=== PATIENT | female | born 1950 | race Caucasian/White ===

== ENCOUNTER 2017-01-22 10:29 | Emergency (ER) | payer OTHER ==
[2017-01-22 11:43] VITALS: BP 144/88
--- NOTE | 2017-01-22 11:57 | UC ---
Complaint Female HPI - HPI Summary HPI Summary: Urinary frequency, urgency, burning, cramping since this morning. Gets UTIs 1-2 times per year, this feels just like that. Denies vaginal symptoms or concerns for STIs. No fever, vomiting, or back pain. - History Of Current Complaint Hx Obtained From: Patient ?: No Onset/Duration: Gradual Onset, Lasting Hours Timing: Constant Severity Initially: Mild Severity Currently: Moderate Character: Burning, Cramping Aggravating Factor(s): Urination <Talita Rankin - Last Filed: 01/22/17 11:55> <Juanita Muñiz - Last Filed: 01/22/17 13:11> - History Of Current Complaint Chief Complaint: UCGU Stated Complaint: UTI COMPLAINT Time Seen by Provider: 01/22/17 11:46 - Allergies/Home Medications Allergies/Adverse Reactions: Allergies Allergy/AdvReac Type Severity Reaction Status Date / Time Ciprofloxacin [From Cipro] Allergy Severe Diarrhea Verified 08/26/16 14:45 Eggs or Egg-derived Products Allergy Intermediate See Comment Verified 08/26/16 14:45 Home Medications: Home Medications Multiple Vitamins W/ Minerals [Hair/Skin/Nails] 01/22/17 [History] PMH/Surg Hx/FS Hx/Imm Hx Endocrine History Of: Denies: Diabetes, Thyroid Disease Cardiovascular History Of: Reports: Hypertension Denies: Cardiac Disorders, Pacemaker/ICD Respiratory History Of: Denies: COPD, Asthma GI/ History Of: Denies: Ulcer - Surgical History Surgical History: Yes Surgery Procedure, Year, and Place: Bilateral hip replacement 10/15/08 and 12/22. both knees arthroscopic. tubal ligation 04/2000. wisdom teeth. small cyst removed from rt wrist early - Family History Known Family History: Negative: Hypertension, Diabetes - Social History Alcohol Use: None Substance Use Type: None Smoking Status (MU): Never Smoked Tobacco Have You Smoked in the Last Year: No <Talita Rankin - Last Filed: 01/22/17 11:55> Review of Systems Constitutional: Negative Skin: Negative Eyes: Negative ENT: Negative Respiratory: Negative Cardiovascular: Negative Gastrointestinal: Negative Genitourinary: Dysuria, Frequency, Urgency Motor: Negative Neurovascular: Negative Musculoskeletal: Negative Neurological: Negative Psychological: Negative All Other Systems Reviewed And Are Negative: Yes <Talita Rankin - Last Filed: 01/22/17 11:55> Physical Exam Triage Information Reviewed: Yes Appearance: Well-Appearing, No Pain Distress, Well-Nourished Vital Signs: Initial Vital Signs Temp 97.9 F 01/22/17 11:39 Pulse 69 01/22/17 11:39 Resp 16 01/22/17 11:39 BP 144/88 01/22/17 11:39 Pulse Ox 100 01/22/17 11:39 Vital Signs Reviewed: Yes Eye Exam: Normal Eyes: Positive: Conjunctiva Clear ENT Exam: Normal ENT: Positive: Normal ENT inspection, Hearing grossly normal, Pharynx normal, TMs normal Dental Exam: Normal Neck exam: Normal Neck: Positive: Supple, Nontender, No Lymphadenopathy Respiratory Exam: Normal Respiratory: Positive: Chest non-tender, Lungs clear, Normal breath sounds, No respiratory distress, No accessory muscle use Cardiovascular Exam: Normal Cardiovascular: Positive: RRR, No Murmur Abdomen Description: Negative: CVA Tenderness (R), CVA Tenderness (L) Musculoskeletal Exam: Normal Neurological Exam: Normal Neurological: Positive: Alert Psychological Exam: Normal Skin Exam: Normal <Talita Rankin - Last Filed: 01/22/17 11:55> Vital Signs: Initial Vital Signs Temp 97.9 F 01/22/17 11:39 Pulse 69 01/22/17 11:39 Resp 16 01/22/17 11:39 BP 144/88 01/22/17 11:39 Pulse Ox 100 01/22/17 11:39 <Juanita Muñiz - Last Filed: 01/22/17 13:11> Complaint Female Dx - Differential Dx/Diagnosis Provider Diagnoses: UTI <Talita Rankin - Last Filed: 01/22/17 11:55> Discharge <Talita Rankin - Last Filed: 01/22/17 11:55> <Juanita Muñiz - Last Filed: 01/22/17 13:11> - Discharge Plan Condition: Stable Disposition: HOME Prescriptions: Cephalexin CAP* [Keflex CAP*] 500 mg PO TID #15 cap Patient Education Materials: Urinary Tract Infection in Women (ED) Referrals: Ria Guzman NP [Primary Care Provider] - Attestation Statement User Type: Provider - I was available for consult. This patient was seen by the TRACI. The patient was not presented to, seen by, or examined by me. <Juanita Muñiz - Last Filed: 01/22/17 13:11>
== END 2017-01-22 12:10 | disposition home or self-care (01) ==
LOC: UCEAST 10:29
DX: N39.0 Urinary tract infection, site not specified (principal)
CPT/HCPCS: 81003; 87086; 99212; G0463

== ENCOUNTER 2017-04-02 15:01 | Emergency (ER) | payer SELFPAY ==
[2017-04-02] MEDS ORDERED: Ibuprofen TAB* 600 MG PO ONE (16:31)
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
--- NOTE | 2017-04-02 18:49 | RAD ---
Indication: Neck pain. 3 views of the cervical spine read in conjunction with the previous identified lateral view demonstrates disc space narrowing at C5-C6 and C6-C7 with mild grade 1 spondylolisthesis of C4 on 5. No fracture is identified. IMPRESSION: Mild grade 1 spondylolisthesis of C4 on 5 likely due to degenerative facet arthropathy. Degenerative disc disease at C5-C6 and C6-C7.
[2017-04-02 19:08] VITALS: BP 124/74
== END 2017-04-02 19:15 | disposition home or self-care (01) ==
LOC: ED 15:01
DX: S16.1XXA Strain of muscle, fascia and tendon at neck level, initial encounter (principal); R51 Headache; V49.9XXA Car occupant (driver) (passenger) injured in unspecified traffic accident, initial encounter; Y93.9 Activity, unspecified; Y92.9 Unspecified place or not applicable
CPT/HCPCS: 72020; 72040; 99282

== ENCOUNTER 2017-12-23 22:10 | Emergency (ER) | payer OTHER ==
[2017-12-23] MEDS ORDERED: Acetaminophen TAB* 325 MG PO ONE (23:58)
[2017-12-24] MEDS ORDERED: Acetaminophen TAB* 325 MG ONE
[2017-12-24 00:04] LABS: ABS Basophils 0.1 10^3/ul (0-0.2); ABS Eosinophils 0.2 10^3/ul (0-0.6); ABS Lymphocytes 1.9 10^3/ul (1.0-4.8); ABS Monocytes 0.6 10^3/ul (0-0.8); ABS Neutrophils 5.8 10^3/ul (1.5-7.7); ABS Nucleated RBC 0 10^3/ul; Eosinophil % 1.8 % (0-6); Hematocrit 39 % (35-47); Hemoglobin 13.3 g/dl (12.0-16.0); Lymphocyte % 22.8 % (25-47); Mean Corpuscular HGB Conc 34 g/dl (31-36); Mean Corpuscular Hemoglobin 30 pg (27-31); Mean Corpuscular Volume 88 fL (80-97); Mean Platelet Volume 8.2 um3 (7.4-10.4); Nucleated Red Blood Cells % 0; Platelet Count 276 10^3/ul (150-450); Red Blood Count 4.46 10^6/ul (4.0-5.4); Red Cell Distribution Width 14 % (10.5-15); White Blood Count 8.5 10^3/ul (3.5-10.8)
[2017-12-24 00:23] LABS: Urine Appearance Clear; Urine Blood Negative (Negative); Urine Color Yellow; Urine Ketones Negative (Negative); Urine Protein Negative (Negative); Urine Specific Gravity 1.005 (1.010-1.030); Urine Urobilinogen Negative (Negative)
[2017-12-24 00:24] LABS: EGFR Non-African American 54.8 (>60)
[2017-12-24] MEDS ORDERED: Iodixanol* (CONTRAST) 320 MG/ML 100 ML SDV IV ONE (00:30)
[2017-12-24] MEDS ORDERED: Cephalexin CAP* 500 MG PO ONE (05:41)
[2017-12-24 06:41] VITALS: BP 100/56
--- NOTE | 2017-12-24 08:06 | RAD ---
INDICATION: Chest pain COMPARISON: Chest x-ray September 17, 2014 TECHNIQUE: An AP portable view obtained at 0011 hours is submitted. FINDINGS: Bones/Soft Tissues: There are no acute bony findings. Cardiomediastinal: The cardiomediastinal silhouette is normal. Lungs: There are no infiltrates. Pleura: There are no pleural effusions. Other: None IMPRESSION: NO ACTIVE DISEASE.
--- NOTE | 2017-12-24 08:16 | RAD ---
INDICATION: Anxiety. Chest pain tonight. Possible abdominal pathology. COMPARISON: Chest x-ray same date; CTA chest August 12, 2010 TECHNIQUE: Axial source images were obtained from the thoracic inlet to the symphysis pubis following administration of 100 mL Visipaque [address] angiographic technique coronal and sagittal reconstructed images were acquired. CHEST FINDINGS: Neck/thyroid: The visualized neck to include the thyroid appear normal. Chest wall: There are no acute abnormalities of the bony thorax or chest wall. There is no supraclavicular, infraclavicular, or axillary lymphadenopathy. Lungs : There are no pulmonary parenchymal masses or infiltrates. The pulmonary interstitium appears normal. There are no endobronchial lesions. Cardiomediastinal structures: The heart is normal in size. There is no pericardial effusion. There is no evidence of aortic aneurysm or dissection. There is no CT evidence of acute pulmonary embolic disease. There is no mediastinal or hilar adenopathy. The esophagus appears normal. Pleura : There are no pleural-based masses or effusions. ABDOMINAL/PELVIC FINDINGS: Liver: The liver is normal in size. There are no masses identified on early arterial phase enhancement. There is no ductal dilatation. Gallbladder: There are no calcified gallstones. There is no evidence of wall thickening or pericholecystic fluid. Spleen: The spleen is normal in size. There are no masses identified on the early arterial phase enhanced images. Pancreas: There is no evidence of pancreatic mass or ductal dilatation. Adrenal glands: There is no evidence of adrenal mass. Kidneys: The kidneys are normal in size and position. There are prompt nephrograms bilaterally. There are no renal parenchymal masses. There is no evidence of nephrolithiasis. Adenopathy: There is no evidence of adenopathy by size criteria. Fluid collections: There are no free or localized fluid collections. Vessels:The aorta and IVC appear normal GI tract: There are no acute CT bowel findings. There is no obstruction. The stomach and small bowel appear normal. The lower GI tract is normal. The cecum, ileocecal valve, and terminal ileum appear normal. The appendix is visualized and appear normal. Pelvic organs: Limited evaluation due to beam hardening artifact from right hip arthroplasty. Bladder: Limited evaluation due to beam hardening artifact from bilateral hip arthroplasty. Abdominal and pelvic soft tissues: There is a low-density mass, likely a fluid collection, in the right inguinal region extending into the iliac fossa. This may be related to iliopsoas bursitis. There is a small periumbilical hernia Osseous structures: There are osteoarthritic changes of the lumbar spine.. IMPRESSION: 1. No CT evidence of acute pulmonary embolic disease. 2. No CT evidence of aortic aneurysm or dissection. 3. Suspect right-sided iliopsoas bursitis. Recommend correlation with clinical history and consider follow-up ultrasonography
--- NOTE | 2017-12-26 15:55 | ED ---
Clint Ovalle Angela, scribed for Jean-Paul Escobedo MD on 12/23/17 at 2351 . HPI Chest Pain - HPI Summary HPI Summary: This pt is a 67 y/o female with hx of anxiety presenting to [facility] [place] [place] c/o intermittent chest pain since 16:00 today. She states she has had a lot of stress lately and today her horse . Pt reports her pain began when she went to see her horse at approximately 16:00. She notes her pain is located in diffuse areas of her middle chest. Denies pleuritic chest pain. Pt notes she describes pain as "someone taking her breath away." She additionally states upper back pain and intermittent headache. Her back pain is aggravated with sitting down. Pt reports bilateral feet and arm tingling, which she notes she has had in the past from arthritis. Pt reports she has had chest pain episodes 3 times in the past couple of weeks after "dental work" and novocaine. Pt notes that a couple of weeks ago one episode of chest pain was accompanied by lightheadedness and a panic attack. PMHx: functional heart murmur, borderline HTN (for which she takes lisinopril). Denies any other cardiac history. - History of Current Complaint Chief Complaint: EDChestPainROMI Hx Obtained From: Patient Onset/Duration: Started Hours Ago, Still Present Timing: Intermittent, Lasting Hours Current Severity: Moderate Pain Intensity: 6 Pain Scale Used: 0-10 Numeric Chest Pain Location: Diffuse Chest Pain Radiates: No Character: Other: - "someone taking her breath away" Aggravating Factor(s): Nothing Alleviating Factor(s): Nothing Associated Signs and Symptoms: Positive: Chest Pain, Headaches - intermittent, Back Pain. Negative: Abdominal Pain - Allergy/Home Medications Allergies/Adverse Reactions: Allergies Allergy/AdvReac Type Severity Reaction Status Date / Time ciprofloxacin [From Cipro] Allergy Diarrhea Verified 12/23/17 22:46 egg Allergy Abdominal Verified 12/23/17 22:47 Pain PMH/Surg Hx/FS Hx/Imm Hx Endocrine/Hematology History: Denies: Hx Diabetes, Hx Thyroid Disease Cardiovascular History: Reports: Hx Hypertension Denies: Hx Pacemaker/ICD Respiratory History: Denies: Hx Asthma, Hx Chronic Obstructive Pulmonary Disease (COPD) GI History: Denies: Hx Ulcer Sensory History: Denies: Hx Hearing Aid Psychiatric History: Denies: Hx Panic Disorder - Surgical History Surgery Procedure, Year, and Place: Bilateral hip replacement 10/15/08 and 12/22. both knees arthroscopic. tubal ligation 04/2000. wisdom teeth. small cyst removed from rt wrist early Infectious Disease History: No Infectious Disease History: Denies: Hx Hepatitis, Hx Human Immunodeficiency Virus (HIV), History Other Infectious Disease, Traveled Outside the [place] in Last 30 Days - Family History Known Family History: Negative: Hypertension, Diabetes - Social History Alcohol Use: None Hx Substance Use: No Substance Use Type: Reports: None Hx Tobacco Use: No Smoking Status (MU): Never Smoked Tobacco Have You Smoked in the Last Year: No Review of Systems Negative: Fever Eyes: Negative ENT: Negative Positive: Chest Pain Respiratory: Negative Gastrointestinal: Negative Musculoskeletal: Other - back pain Positive: Headache - intermittent All Other Systems Reviewed And Are Negative: Yes Physical Exam - Summary Physical Exam Summary: General: No acute distress Appearance: Well-appearing, Well-nourished Skin: Warm Eyes: Normal ENT: Normal Neck: Supple, nontender Respiratory: Clear to auscultation Cardiovascular: Normal S1, S2. No murmurs. Normal distal pulses in tibial and radial bilaterally. Abdomen: Soft, nontender Musculoskeletal: Normal, Strength/ROM Intact Neurological: Normal, A&Ox3 Psychiatric: Normal Triage Information Reviewed: Yes Vital Signs On Initial Exam: Initial Vitals Temp Pulse Resp BP Pulse Ox 97.1 F 77 20 152/86 100 12/23/17 22:12 12/23/17 22:12 12/23/17 22:12 12/23/17 22:12 12/23/17 22:12 Vital Signs Reviewed: Yes Diagnostics - Vital Signs Vital Signs Temp Pulse Resp BP Pulse Ox 12/23/17 23:00 65 13 111/59 96 12/23/17 22:41 68 16 123/58 99 12/23/17 22:32 70 9 100 12/23/17 22:30 123/58 12/23/17 22:12 97.1 F 77 20 152/86 100 - Laboratory Lab Results: Lab Results 12/23/17 12/23/17 12/23/17 Range/Units 22:40 22:40 22:40 WBC 8.5 (3.5-10.8) 10^3/ul RBC 4.46 (4.0-5.4) 10^6/ul Hgb 13.3 (12.0-16.0) g/dl Hct 39 (35-47) % MCV 88 (80-97) fL MCH 30 (27-31) pg MCHC 34 (31-36) g/dl RDW 14 (10.5-15) % Plt Count 276 (150-450) 10^3/ul MPV 8.2 (7.4-10.4) um3 Neut % (Auto) 67.9 (38-83) % Lymph % (Auto) 22.8 L (25-47) % Crisp % (Auto) 6.9 (0-7) % Eos % (Auto) 1.8 (0-6) % Baso % (Auto) 0.6 (0-2) % Absolute Neuts (auto) 5.8 (1.5-7.7) 10^3/ul Absolute Lymphs (auto) 1.9 (1.0-4.8) 10^3/ul Absolute Monos (auto) 0.6 (0-0.8) 10^3/ul Absolute Eos (auto) 0.2 (0-0.6) 10^3/ul Absolute Basos (auto) 0.1 (0-0.2) 10^3/ul Absolute Nucleated RBC 0 10^3/ul Nucleated RBC % 0 APTT 28.9 (26.0-36.3) seconds Sodium 135 (133-145) mmol/L Potassium 4.3 (3.5-5.0) mmol/L Chloride 99 L (101-111) mmol/L Carbon Dioxide 28 (22-32) mmol/L Anion Gap 8 (2-11) mmol/L BUN 22 (6-24) mg/dL Creatinine 1.01 H (0.51-0.95) mg/dL Est GFR ( Amer) 70.5 (>60) Est GFR (Non-Af Amer) 54.8 (>60) BUN/Creatinine Ratio 21.8 H (8-20) Glucose 101 H (70-100) mg/dL Lactic Acid (0.5-2.0) mmol/L Calcium 10.5 H (8.6-10.3) mg/dL Magnesium 2.0 (1.9-2.7) mg/dL Total Bilirubin 0.40 (0.2-1.0) mg/dL AST 27 (13-39) U/L ALT 19 (7-52) U/L Alkaline Phosphatase 68 (34-104) U/L Troponin I 0.00 (<0.04) ng/mL Total Protein 6.8 (6.4-8.9) g/dL Albumin 4.1 (3.2-5.2) g/dL Globulin 2.7 (2-4) g/dL Albumin/Globulin Ratio 1.5 (1-3) TSH 4.24 (0.34-5.60) mcIU/mL Urine Color Urine Appearance Urine pH (5-9) Ur Specific [place] (1.010-1.030) Urine Protein (Negative) Urine Ketones (Negative) Urine Blood (Negative) Urine Nitrate (Negative) Urine Bilirubin (Negative) Urine Urobilinogen (Negative) Ur Leukocyte Esterase (Negative) Urine WBC (Auto) (Absent) Urine RBC (Auto) (Absent) Ur Squamous Epith Cells (Absent) Urine Bacteria (Absent) Urine Glucose (Negative) 12/23/17 12/23/17 12/24/17 Range/Units 22:40 23:00 04:00 WBC (3.5-10.8) 10^3/ul RBC (4.0-5.4) 10^6/ul Hgb (12.0-16.0) g/dl Hct (35-47) % MCV (80-97) fL MCH (27-31) pg MCHC (31-36) g/dl RDW (10.5-15) % Plt Count (150-450) 10^3/ul MPV (7.4-10.4) um3 Neut % (Auto) (38-83) % Lymph % (Auto) (25-47) % Crisp % (Auto) (0-7) % Eos % (Auto) (0-6) % Baso % (Auto) (0-2) % Absolute Neuts (auto) (1.5-7.7) 10^3/ul Absolute Lymphs (auto) (1.0-4.8) 10^3/ul Absolute Monos (auto) (0-0.8) 10^3/ul Absolute Eos (auto) (0-0.6) 10^3/ul Absolute Basos (auto) (0-0.2) 10^3/ul Absolute Nucleated RBC 10^3/ul Nucleated RBC % APTT (26.0-36.3) seconds Sodium (133-145) mmol/L Potassium (3.5-5.0) mmol/L Chloride (101-111) mmol/L Carbon Dioxide (22-32) mmol/L Anion Gap (2-11) mmol/L BUN (6-24) mg/dL Creatinine (0.51-0.95) mg/dL Est GFR ( Amer) (>60) Est GFR (Non-Af Amer) (>60) BUN/Creatinine Ratio (8-20) Glucose (70-100) mg/dL Lactic Acid 1.5 (0.5-2.0) mmol/L Calcium (8.6-10.3) mg/dL Magnesium (1.9-2.7) mg/dL Total Bilirubin (0.2-1.0) mg/dL AST (13-39) U/L ALT (7-52) U/L Alkaline Phosphatase (34-104) U/L Troponin I 0.00 (<0.04) ng/mL Total Protein (6.4-8.9) g/dL Albumin (3.2-5.2) g/dL Globulin (2-4) g/dL Albumin/Globulin Ratio (1-3) TSH (0.34-5.60) mcIU/mL Urine Color Yellow Urine Appearance Clear Urine pH 8.0 (5-9) Ur Specific [place] 1.005 L (1.010-1.030) Urine Protein Negative (Negative) Urine Ketones Negative (Negative) Urine Blood Negative (Negative) Urine Nitrate Negative (Negative) Urine Bilirubin Negative (Negative) Urine Urobilinogen Negative (Negative) Ur Leukocyte Esterase 1+ A (Negative) Urine WBC (Auto) 1+(6-10/hpf) A (Absent) Urine RBC (Auto) Trace(0-2/hpf) (Absent) Ur Squamous Epith Cells Present A (Absent) Urine Bacteria Absent (Absent) Urine Glucose Negative (Negative) Result Diagrams: 12/23/17 22:40 12/23/17 22:40 Lab Statement: Any lab studies that have been ordered have been reviewed, and results considered in the medical decision making process. - Radiology Chest XR Xray Interpretation: No Acute Changes - no acute intrathoracic disease. Radiology Interpretation Completed By: ED Physician - CT CTA chest/abdomen/pelvis CT Interpretation: No Acute Changes - IMPRESSION: No aortic dissection. Moderate degenerative chagnes of the lumbar spine without fracture. Suspected right sided iliopsoas bursitis. Dr. Escobedo has reviewed this radiology report. CT Interpretation Completed By: Radiologist - EKG 22:14 Cardiac Rate: NL EKG Rhythm: Sinus Rhythm - at 73 bpm EKG Interpretation: No acute ST changes. Re-Evaluation - Re-Evaluation First Eval Re-Evaluation Time: 06:21 Comment: Pt reports feeling better. Chest Pain Course/Dx - Course Course Of Treatment: chest pain resolved after ED course, ct negative for any aortic pathology. Neuro intact, normal distal pulses, pt instructed to fu with quality assurance calibrator and pmd and to continue abx for uti. agrees to and understands dc instructions. - Diagnoses Provider Diagnoses: Chest pain Discharge - Sign-Out/Discharge Documenting (check all that apply): Discharge - discharge to home - Discharge Plan Condition: Improved Disposition: HOME Prescriptions: Cephalexin CAP* [Keflex CAP*] 500 mg PO BID #10 cap Patient Education Materials: Chest Pain (ED), Urinary Tract Infection in Women (ED) Referrals: Crow Carpenter MD [Primary Care Provider] - Kevin Kendall MD [Medical Doctor] - Nia Eason MD [Medical Doctor] - Additional Instructions: PLEASE TAKE MEDICATIONS DIRECTED PLEASE MAKE AN APPOINTMENT FIRST THING IN THE MORNING TO BE SEEN BY A WARD NURSE WITHIN 1-2 WEEKS PLEASE RETURN IMMEDIATELY TO THE ER IF YOU HAVE ANY WORSENING OR CONCERNING SYMPTOMS PLEASE MAKE AN APPOINTMENT TO BE SEEN BY YOUR PRIMARY CARE DOCTOR WITHIN 1 WEEK - Billing Disposition and Condition Condition: IMPROVED Disposition: HOME The documentation as recorded by the Clint bonner Angela accurately reflects the service I personally performed and the decisions made by , Jean-Palu Escobedo MD.
== END 2017-12-24 06:40 | disposition home or self-care (01) ==
LOC: ED 22:10
DX: R07.9 Chest pain, unspecified (principal); R51 Headache; M54.9 Dorsalgia, unspecified
CPT/HCPCS: 36415; 71045; 71275; 74174; 80053; 81003; 81015; 83605; 83735; 84443; 84484; 85025; 85730; 87086; 93005; 96374; 99283; A9270-GY; Q9967

== ENCOUNTER 2018-12-07 10:07 | Emergency (ER) | payer MEDICARE, OTHER ==
--- NOTE | 2018-12-07 10:14 | UC ---
Complaint Female HPI - HPI Summary HPI Summary: 68 yo female presents with urinary burning, pressure, and frequency since this morning. She tells me that she has a long history of UTIs and this feels the same. She denies fever, chills, abdominal pain, n/v, flank pain, hematuria. - History Of Current Complaint Stated Complaint: UTI Time Seen by Provider: 12/07/18 10:14 Hx Obtained From: Patient Onset/Duration: Sudden Onset Severity Initially: Moderate Severity Currently: Moderate Pain Intensity: 5 Pain Scale Used: 0-10 Numeric - Allergies/Home Medications Allergies/Adverse Reactions: Allergies Allergy/AdvReac Type Severity Reaction Status Date / Time egg Allergy Abdominal Verified 12/07/18 10:22 Pain ciprofloxacin [From Cipro] AdvReac Diarrhea Verified 12/07/18 10:22 PMH/Surg Hx/FS Hx/Imm Hx Cardiovascular History: Hypertension - Surgical History Surgical History: Yes Surgery Procedure, Year, and Place: Bilateral hip replacement 10/15/08 and 12/22. both knees arthroscopic. tubal ligation 04/2000. wisdom teeth. small cyst removed from rt wrist early - Family History Known Family History: Negative: Hypertension, Diabetes - Social History Lives: With Family Alcohol Use: None Substance Use Type: None Smoking Status (MU): Never Smoked Tobacco Have You Smoked in the Last Year: No Review of Systems All Other Systems Reviewed And Are Negative: Yes Constitutional: Positive: Negative Skin: Positive: Negative Respiratory: Positive: Negative Cardiovascular: Positive: Negative Gastrointestinal: Positive: Negative Genitourinary: Positive: Dysuria, Urgency Neurovascular: Positive: Negative Neurological: Positive: Negative Psychological: Positive: Negative Physical Exam - Summary Physical Exam Summary: GENERAL: NAD. WDWN. No pain distress. SKIN: No rashes, sores, lesions, or open wounds. NECK: Supple. Nontender. No lymphadenopathy. CHEST: CTAB. No r/r/w. No accessory muscle use. Breathing comfortably and in no distress. CV: RRR. Without m/r/g. Pulses intact. Cap refill <2seconds ABDOMEN: Soft. NTTP. No distention or guarding. No organomegaly. No CVA tenderness. Bowel sounds present NEURO: Alert. PSYCH: Age appropriate behavior. Triage Information Reviewed: Yes Vital Signs: Laboratory Tests 12/07/18 10:22 POC Urine Color Yellow POC Urine Clarity Clear POC Urine pH 5.5 POC Ur Specif [place] >= 1.030 POC Urine Protein 1+ A POC Ur Glucose (UA) Negative POC Urine Ketones Trace A POC Urine Blood 2+ A POC Urine Nitrite Negative POC Urine Bilirubin Negative POC Urine Urobilinogen 0.2 POC U Leukocyte Esteras 3+ A Vital Signs: Temp Pulse Resp BP Pulse Ox 97 F 77 16 137/78 100 12/07/18 10:25 12/07/18 10:25 12/07/18 10:25 12/07/18 10:25 12/07/18 10:25 Vital Signs Reviewed: Yes Complaint Female Dx - Course Course Of Treatment: UTI - Differential Dx/Diagnosis Provider Diagnosis: UTI (urinary tract infection) Discharge - Sign-Out/Discharge Documenting (check all that apply): Patient Departure All imaging exams completed and their final reports reviewed: No Studies - Discharge Plan Condition: Stable Disposition: HOME Prescriptions: Cephalexin CAP* [Keflex CAP*] 500 mg PO BID #10 cap Fluconazole 150 MG TAB* [Diflucan 150 MG TAB*] 150 mg PO DAILY #3 tablet Phenazopyridine 200 mg (NF) [Pyridium 200 MG tab *] 200 mg PO TID #6 tab Patient Education Materials: Urinary Tract Infection in Women (ED) Referrals: Crow Carpenter MD [Primary Care Provider] - Additional Instructions: If you develop a fever, shortness of breath, chest pain, new or worsening symptoms - please call your PCP or go to the ED. Your blood pressure was mildly elevated at todays visit. Please see your primary provider within 4 weeks for recheck and re-evaluation. - Billing Disposition and Condition Condition: STABLE Disposition: Home
[2018-12-07 10:32] VITALS: BP 137/78
[2018-12-07] MEDS ORDERED: Cephalexin CAP* 500 MG PO ONE (10:43)
[2018-12-07] MEDS ORDERED: Phenazopyridine TAB* 100 MG PO ONE (10:44)
== END 2018-12-07 10:55 | disposition home or self-care (01) ==
LOC: UCEAST 10:07
DX: N39.0 Urinary tract infection, site not specified (principal); Z87.440 Personal history of urinary (tract) infections; I10 Essential (primary) hypertension; Z88.1 Allergy status to other antibiotic agents; Z91.012 Allergy to eggs; Z96.643 Presence of artificial hip joint, bilateral
CPT/HCPCS: 81003; 87086; 99212; A9270-GY; G0463

== ENCOUNTER 2019-04-14 19:29 | Emergency (ER) | payer OTHER ==
--- NOTE | 2019-04-14 19:40 | UC ---
Complaint Female HPI - HPI Summary HPI Summary: 68 yo female presents with UTI symptoms. She tells me that for the last 2 days she has been having urinary frequency and bladder pressure. She has had UTIs many times in the past and this feels the same. She denies fever, chills, abdominal pain, n/v, flank pain, hematuria. - History Of Current Complaint Stated Complaint: PERSONAL Time Seen by Provider: 04/14/19 19:40 Hx Obtained From: Patient Onset/Duration: Gradual Onset Severity Initially: Mild Severity Currently: Mild Pain Intensity: 2 Pain Scale Used: 0-10 Numeric - Allergies/Home Medications Allergies/Adverse Reactions: Allergies Allergy/AdvReac Type Severity Reaction Status Date / Time egg Allergy Abdominal Verified 04/14/19 19:53 Pain ciprofloxacin [From Cipro] AdvReac Diarrhea Verified 04/14/19 19:53 PMH/Surg Hx/FS Hx/Imm Hx Cardiovascular History: Hypertension - Surgical History Surgical History: Yes Surgery Procedure, Year, and Place: Bilateral hip replacement 10/15/08 and 12/22. Bilateral knee replacements 07/2018. tubal ligation 04/2000. wisdom teeth. small cyst removed from rt wrist early - Family History Known Family History: Negative: Hypertension, Diabetes - Social History Lives: With Family Alcohol Use: None Substance Use Type: None Smoking Status (MU): Never Smoked Tobacco Have You Smoked in the Last Year: No Review of Systems All Other Systems Reviewed And Are Negative: Yes Constitutional: Positive: Negative Skin: Positive: Negative Respiratory: Positive: Negative Cardiovascular: Positive: Negative Gastrointestinal: Positive: Negative Genitourinary: Positive: Dysuria, Frequency Neurovascular: Positive: Negative Neurological: Positive: Negative Psychological: Positive: Negative Physical Exam - Summary Physical Exam Summary: GENERAL: NAD. WDWN. No pain distress. SKIN: No rashes, sores, lesions, or open wounds. NECK: Supple. Nontender. No lymphadenopathy. CHEST: CTAB. No r/r/w. No accessory muscle use. Breathing comfortably and in no distress. CV: RRR. Without m/r/g. Pulses intact. Cap refill <2seconds ABDOMEN: Soft. NTTP. No distention or guarding. No CVA tenderness. Bowel sounds present NEURO: Alert. PSYCH: Age appropriate behavior. Triage Information Reviewed: Yes Vital Signs: Vital Signs: Temp Pulse Resp BP Pulse Ox 97.1 F 64 18 143/80 96 04/14/19 19:45 04/14/19 19:45 04/14/19 19:45 04/14/19 19:45 04/14/19 19:45 Laboratory Tests 04/14/19 20:08 POC Urine Color Yellow POC Urine Clarity Clear POC Urine pH 6.5 POC Ur Specif [place] 1.010 POC Urine Protein Negative POC Ur Glucose (UA) Negative POC Urine Ketones Negative POC Urine Blood Negative POC Urine Nitrite Negative POC Urine Bilirubin Negative POC Urine Urobilinogen 0.2 POC U Leukocyte Esteras 1+ A Vital Signs Reviewed: Yes Complaint Female Dx - Course Course Of Treatment: UA with 1+ leuks. Will treat for UTI at this time and send her urine for culture. - Differential Dx/Diagnosis Provider Diagnosis: UTI (urinary tract infection) Discharge - Sign-Out/Discharge Documenting (check all that apply): Patient Departure All imaging exams completed and their final reports reviewed: No Studies - Discharge Plan Condition: Stable Disposition: HOME Prescriptions: Cephalexin CAP* [Keflex CAP*] 500 mg PO BID #10 cap Fluconazole 150 MG TAB* [Diflucan 150 MG TAB*] 150 mg PO DAILY #1 tablet Phenazopyridine 200 mg (NF) [Pyridium 200 MG tab *] 200 mg PO TID #6 tab Patient Education Materials: Urinary Tract Infection in Women (DC) Referrals: Crow Carpenter MD [Primary Care Provider] - Additional Instructions: If you develop a fever, shortness of breath, chest pain, new or worsening symptoms - please call your PCP or go to the ED immediately. Your blood pressure was slightly elevated at todays visit. Please see your primary provider within 4 weeks for recheck and re-evaluation. - Billing Disposition and Condition Condition: STABLE Disposition: Home
[2019-04-14 19:53] VITALS: BP 143/80
--- NOTE | 2019-04-16 15:11 | UC ---
- Progress Note Progress Note: please notify pt NO UTI stop antibiotic see PCP or return here if still symptomatic Course/Dx - Diagnoses Provider Diagnoses: UTI (urinary tract infection) Discharge - Sign-Out/Discharge Documenting (check all that apply): Post-Discharge Follow Up All imaging exams completed and their final reports reviewed: No Studies - Discharge Plan Condition: Stable Disposition: HOME Prescriptions: Cephalexin CAP* [Keflex CAP*] 500 mg PO BID #10 cap Fluconazole 150 MG TAB* [Diflucan 150 MG TAB*] 150 mg PO DAILY #1 tablet Phenazopyridine 200 mg (NF) [Pyridium 200 MG tab *] 200 mg PO TID #6 tab Patient Education Materials: Urinary Tract Infection in Women (DC) Referrals: Crow Carpenter MD [Primary Care Provider] - Additional Instructions: If you develop a fever, shortness of breath, chest pain, new or worsening symptoms - please call your PCP or go to the ED immediately. Your blood pressure was slightly elevated at todays visit. Please see your primary provider within 4 weeks for recheck and re-evaluation. - Billing Disposition and Condition Condition: STABLE Disposition: Home
== END 2019-04-14 20:20 | disposition home or self-care (01) ==
LOC: UCEAST 19:29
DX: N39.0 Urinary tract infection, site not specified (principal); I10 Essential (primary) hypertension
CPT/HCPCS: 81003; 87086; 99212; G0463

== ENCOUNTER 2019-10-05 13:11 | Emergency (ER) | payer OTHER ==
--- NOTE | 2019-10-05 15:10 | ED ---
Headache - HPI Summary HPI Summary: Patient is a 69 y/o F presenting to the ED for a chief complaint of headache. Patient is present with her . On 10/05/19, patient was cleaning her house when she felt a headache and shortness of breath. She describes her headache as a pressure behind her sinuses. Since a knee surgery in July 2018 , she states she has had dizziness, headache, and shortness of breath. She has had a headache almost daily since the surgery. During a headache, she occasionally feels chills and paresthesia in the bilateral hands. She also notes occasional nausea and decreased hearing in the left ear which she states may be due to cerumen impaction. Patient denies fever, one-sided weakness, vomiting, diarrhea, or abdominal pain. PMHx is significant for hypertension, hiatal hernia, and arthritis. She takes her blood pressure daily. Patient denies tobacco, alcohol, or drug use. Allergies noted. Medications reviewed. - History Of Current Complaint Chief Complaint: EDGeneral Stated Complaint: SOB/HEADACHE PER PT Time Seen by Provider: 10/05/19 14:50 Hx Obtained From: Patient Onset/Duration: Sudden Onset, Still Present Initially Headache Was: Moderate Currently Pain Is: Mild Timing: Intermittent, Lasting:, Weeks Character: Pressure, Typical Headache Location of Headache: Diffuse Aggravating Factor: Nothing Allevating Factors: Nothing Associated Signs And Symptoms: Nausea - Occasional - Allergies/Home Medications Allergies/Adverse Reactions: Allergies Allergy/AdvReac Type Severity Reaction Status Date / Time egg Allergy Abdominal Verified 10/05/19 13:14 Pain ciprofloxacin [From Cipro] AdvReac Diarrhea Verified 10/05/19 13:14 Home Medications: Home Medications Cholecalciferol (Vitamin D3) [Vitamin D3] 1,000 unit PO DAILY 10/05/19 [History Confirmed 10/05/19] Cranberry Fruit [Cranberry] 450 mg PO DAILY 10/05/19 [History Confirmed 10/05/19 ] L.acidoph,Paracasei, B.lactis [Probiotic] 1 cap PO DAILY 10/05/19 [History Confirmed 10/05/19] Lisinopril/HCTZ 20/12.5(NF) [Zestoretic 20/12.5(NF)] 0.5 tab PO DAILY 10/05/19 [ History Confirmed 10/05/19] Omeprazole CAP (NF) [Prilosec CAP* 20 MG] 20 mg PO DAILY 10/05/19 [History Confirmed 10/05/19] Potassium Gluconate [Potassium Gluconate ER] 595 mg PO BID 10/05/19 [History Confirmed 10/05/19] PMH/Surg Hx/FS Hx/Imm Hx Previously Healthy: Yes Endocrine/Hematology History: Denies: Hx Diabetes, Hx Thyroid Disease Cardiovascular History: Reports: Hx Hypertension Denies: Hx Pacemaker/ICD Respiratory History: Denies: Hx Asthma, Hx Chronic Obstructive Pulmonary Disease (COPD) GI History: Denies: Hx Ulcer History: Denies: Hx Renal Disease Musculoskeletal History: Reports: Hx Arthritis Sensory History: Denies: Hx Legally Blind, Hx Deafness, Hx Hearing Aid Opthamlomology History: Denies: Hx Legally Blind EENT History: Denies: Hx Deafness Psychiatric History: Denies: Hx Panic Disorder - Surgical History Surgical History: Yes Surgery Procedure, Year, and Place: Bilateral hip replacement 10/15/08 and 12/22. Bilateral knee replacements 07/2018. tubal ligation 04/2000. wisdom teeth. small cyst removed from rt wrist early Infectious Disease History: No Infectious Disease History: Denies: Hx Hepatitis, Hx Human Immunodeficiency Virus (HIV), History Other Infectious Disease, Traveled Outside the [place] in Last 30 Days - Family History Known Family History: Negative: Hypertension, Diabetes - Social History Lives: With Family Alcohol Use: None Hx Substance Use: No Substance Use Type: Reports: None Hx Tobacco Use: No Smoking Status (MU): Never Smoked Tobacco Have You Smoked in the Last Year: No Review of Systems Positive: Chills. Negative: Fever Positive: Other - Positive decreased hearing in the left air Positive: Shortness Of Breath Positive: Nausea. Negative: Abdominal Pain, Vomiting, Diarrhea Neurological: Other - Positive dizziness Positive: Headache, Paresthesia - Bilateral hands. Negative: Weakness - One- sided All Other Systems Reviewed And Are Negative: Yes Physical Exam - Summary Physical Exam Summary: Constitutional: Well-developed, Well-nourished, Alert. (-) Distressed Skin: Warm, Dry HENT: Normocephalic; Atraumatic Eyes: Conjunctiva normal Neck: Musculoskeletal ROM normal neck. (-) JVD, (-) Stridor, (-) Tracheal deviation Cardio: Rhythm regular, rate normal, Heart sounds normal; Intact distal pulses; Radial pulses are 2+ and symmetric. (-) Murmur Pulmonary/Chest wall: Effort normal. (-) Respiratory distress, (-) Wheezes, (-) Rales Abd: Soft, (-) tenderness, (-) Distension, (-) Guarding, (-) Rebound Musculoskeletal: (-) Edema Lymph: (-) Cervical adenopathy Neuro: Alert, Oriented x3 Psych: Mood and affect Normal Triage Information Reviewed: Yes Vital Signs On Initial Exam: Initial Vitals Temp Pulse Resp BP Pulse Ox 97.1 F 74 17 133/91 97 10/05/19 13:12 10/05/19 13:12 10/05/19 13:12 10/05/19 13:12 10/05/19 13:12 Vital Signs Reviewed: Yes Procedures - Sedation Patient Received Moderate/Deep Sedation with Procedure: No Diagnostics - Vital Signs Vital Signs Temp Pulse Resp BP Pulse Ox 10/05/19 13:12 97.1 F 74 17 133/91 97 - Laboratory Result Diagrams: 10/05/19 15:39 10/05/19 15:39 Lab Statement: Any lab studies that have been ordered have been reviewed, and results considered in the medical decision making process. - Radiology Chest X-ray Radiology Interpretation Completed By: Radiologist Summary of Radiographic Findings: Chest X-ray IMPRESSION: NO ACTIVE CARDIOPULMONARY DISEASE. Reviewed by Dr. Longo. - CT Brain CT CT Interpretation Completed By: Radiologist Summary of CT Findings: Brain CT IMPRESSION: NO ACUTE INTRACRANIAL PATHOLOGY. Reviewed by Dr. Longo. - EKG 15:50 Cardiac Rate: NL - 75 BPM EKG Rhythm: Sinus Rhythm ST Segment: Normal Ectopy: None Summary of EKG Findings: EKG at 15:50 shows normal sinus rhythm with 75 BPM, no STEMI. Reviewed and interpreted by Dr. Longo. Headache Course/Dx - Course Course Of Treatment: Patient is here with multiple vague symptoms. Patient's had 1 year of headache with no neurologic symptoms. Patient had negative CT brain for any obvious mass. Patient's also had when necessary shortness of breath with no inciting factors. Patient had negative chest x-ray. Patient EKG which showed no abnormalities. Patient has also been having fatigue. Patient had a negative TSH for any abnormality there. Patient was seen and did not have any emergent condition and was discharged with PCP follow-up. - Diagnoses Provider Diagnoses: Fatigue, Headache Discharge ED - Sign-Out/Discharge Documenting (check all that apply): Patient Departure - Discharge - Discharge Plan Condition: Stable Disposition: HOME Patient Education Materials: Fatigue (ED) Referrals: Crow Carpenter MD [Primary Care Provider] - Additional Instructions: PLEASE RETURN TO EMERGENCY DEPARTMENT FOR ONE-SIDED WEAKNESS, SLURRED SPEECH, OR ANY NEW OR WORSENING SYMPTOMS. Please follow up with your primary care physician for further evaluation. Please make all follow-ups in 1-3 days unless I advise you otherwise. - Billing Disposition and Condition Condition: STABLE Disposition: Home - Attestation Statements Document Initiated by Rodger: Yes Documenting Scribe: Smita Chaudhari Provider For Whom Rodger is Documenting (Include Credential): Stalin Longo MD Scribe Attestation: Smita Ovalle, scribed for Stalin Longo MD on 10/05/19 at 1722. Scribe Documentation Reviewed: Yes Provider Attestation: The documentation as recorded by the Smita bonner accurately reflects the service I personally performed and the decisions made by Stalin solis MD Status of Scribe Document: Viewed
[2019-10-05 15:48] LABS: ABS Eosinophils 0.1 10^3/ul (0-0.6); ABS Lymphocytes 1.5 10^3/ul (1.0-4.8); ABS Monocytes 0.4 10^3/ul (0-0.8); ABS Neutrophils 5.8 10^3/ul (1.5-7.7); Eosinophil % 1.7 %; Hematocrit 41 % (35-47); Hemoglobin 14.2 g/dL (12.0-16.0); Lymphocyte % 18.5 %; Mean Corpuscular HGB Conc 35 g/dL (31-36); Mean Corpuscular Hemoglobin 30 pg (27-31); Mean Corpuscular Volume 86 fL (80-97); Platelet Count 276 10^3/uL (150-450); Red Blood Count 4.78 10^6 /uL (3.70-4.87); Red Cell Distribution Width 14 % (10-15); White Blood Count 7.9 10^3/uL (3.5-10.8)
[2019-10-05 16:09] LABS: Troponin I 0.01 ng/mL (<0.03)
[2019-10-05 16:27] LABS: Albumin 4.5 g/dL (3.2-5.2); Albumin/Globulin Ratio 1.7 (1-3); BUN/Creatinine Ratio 21.6 (8-20); Calcium 9.8 mg/dL (8.6-10.3); EGFR African American 77.3 (>60); EGFR Non-African American 63.9 (>60); Globulin 2.6 g/dL (2-4); Potassium 3.7 mmol/L (3.5-5.0); Total Bilirubin 0.6 mg/dL (0.2-1.0); Total Protein 7.1 g/dL (6.4-8.9)
[2019-10-05 17:05] LABS: TSH (Thyroid Stimulating Horm) 2.08 mcIU/mL (0.34-5.60)
[2019-10-05 17:34] VITALS: BP 143/92
== END 2019-10-05 17:32 | disposition home or self-care (01) ==
LOC: ED 13:11
DX: R53.83 Other fatigue (principal); R51 Headache; R11.0 Nausea; Z79.899 Other long term (current) drug therapy; I10 Essential (primary) hypertension; R06.02 Shortness of breath
CPT/HCPCS: 36415; 70450; 71046; 80053; 84443; 84484; 85025; 93005; 99282

== ENCOUNTER 2019-10-25 07:22 | Emergency (ER) | payer OTHER ==
[2019-10-25 07:42] VITALS: BP 146/95
[2019-10-25 07:48] LABS: Influenza A Molecular NEGATIVE (Negative); Influenza B Molecular NEGATIVE (Negative)
--- NOTE | 2019-10-25 08:26 | UC ---
Complaint Female HPI - HPI Summary HPI Summary: 69-year-old woman comes in with chief complaint of burning with urination. Started this morning. She reports it feels like a UTI. Patient has had intermittent abdominal pain for months. No change in that pain. No fevers measured. For months patient has had intermittent upper abdominal pain that radiates to her back. It's worse when she eats. Right now she does not have that pain. She finds there is a tender spot in her right upper quadrant which he pushes there. She still has her gallbladder. Usually accompanied with this pain there is an episode of diarrhea and diffuse abdominal discomfort. Has not seen any blood in the diarrhea. She does have a history of hiatal hernia and GERD. She is on omeprazole 20 mg once a day. - History Of Current Complaint Chief Complaint: UCGeneralIllness Stated Complaint: FLU SYMPTOMS Time Seen by Provider: 10/25/19 07:36 Pain Intensity: 9 - Allergies/Home Medications Allergies/Adverse Reactions: Allergies Allergy/AdvReac Type Severity Reaction Status Date / Time egg Allergy Abdominal Verified 10/05/19 13:14 Pain ciprofloxacin [From Cipro] AdvReac Diarrhea Verified 10/05/19 13:14 PMH/Surg Hx/FS Hx/Imm Hx Previously Healthy: Yes Cardiovascular History: Hypertension GI/ History: Gastroesophageal Reflux - Surgical History Surgical History: Yes Surgery Procedure, Year, and Place: Bilateral hip replacement 10/15/08 and 12/22. Bilateral knee replacements 07/2018. tubal ligation 04/2000. wisdom teeth. small cyst removed from rt wrist early - Family History Known Family History: Negative: Hypertension, Diabetes - Social History Alcohol Use: None Substance Use Type: None Smoking Status (MU): Never Smoked Tobacco Have You Smoked in the Last Year: No Review of Systems All Other Systems Reviewed And Are Negative: Yes Constitutional: Positive: Other - SEE HPI Skin: Positive: Negative Eyes: Positive: Negative ENT: Positive: Negative Respiratory: Positive: Negative Cardiovascular: Positive: Negative Gastrointestinal: Positive: Abdominal Pain, Diarrhea, Other - SEE HPI Genitourinary: Positive: Dysuria Motor: Positive: Negative Neurovascular: Positive: Negative Musculoskeletal: Positive: Negative Neurological: Positive: Negative Psychological: Positive: Negative Is Patient Immunocompromised?: No Physical Exam Triage Information Reviewed: Yes Appearance: Well-Appearing, No Pain Distress, Well-Nourished Vital Signs: Initial Vital Signs Temp 97.7 F 10/25/19 07:36 Pulse 90 10/25/19 07:36 Resp 16 10/25/19 07:36 BP 146/95 10/25/19 07:36 Pulse Ox 98 10/25/19 07:36 Vital Signs Reviewed: Yes Eye Exam: Normal Eyes: Positive: Conjunctiva Clear ENT: Negative: Nasal congestion Neck: Positive: Supple Respiratory: Positive: Lungs clear, Normal breath sounds, No respiratory distress Cardiovascular: Positive: RRR Abdomen Description: Positive: Other: - Mild tenderness to palpation right upper quadrant and epigastrium. The rest the abdomen is nontender to palpation. Bowel Sounds: Positive: Present Musculoskeletal: Positive: Strength Intact, ROM Intact Neurological: Positive: Alert, Muscle Tone Normal Psychological: Positive: Age Appropriate Behavior Skin: Positive: Rashes Complaint Female Dx - Course Course Of Treatment: We'll treat with Keflex for the UTI. Today we do not have ultrasound available here in clinic. Patient's in no acute abdominal pain today. We did discuss following up either with her primary care physician or here for further evaluation of her upper abdominal pain. Also discussed that if she had more pain and was feeling ill she should go the emergency department. - Differential Dx/Diagnosis Provider Diagnosis: UTI (urinary tract infection), Upper abdominal pain Discharge ED - Sign-Out/Discharge Documenting (check all that apply): Patient Departure All imaging exams completed and their final reports reviewed: No Studies - Discharge Plan Condition: Stable Disposition: HOME Prescriptions: Cephalexin CAP* [Keflex CAP*] 500 mg PO TID #21 cap Fluconazole 150 MG TAB* [Diflucan 150 MG TAB*] 150 mg PO ONCE #2 tablet Patient Education Materials: Urinary Tract Infection in Women (ED), Abdominal Pain (ED) Referrals: Crow Carpenter MD [Primary Care Provider] - Additional Instructions: FOLLOW UP WITH YOUR DOCTOR. GET REEVALUATED SOONER IF NOT IMPROVED OR WORSE OR ANY QUESTIONS OR CONCERNS. - Billing Disposition and Condition Condition: STABLE Disposition: Home
== END 2019-10-25 08:41 | disposition home or self-care (01) ==
LOC: UCEAST 07:22
DX: N39.0 Urinary tract infection, site not specified (principal); R10.11 Right upper quadrant pain; R10.13 Epigastric pain; R19.7 Diarrhea, unspecified; I10 Essential (primary) hypertension; K21.9 Gastro-esophageal reflux disease without esophagitis; K44.9 Diaphragmatic hernia without obstruction or gangrene; Z91.012 Allergy to eggs; Z88.1 Allergy status to other antibiotic agents
CPT/HCPCS: 81003; 87077; 87086; 87186; 99211; G0463

== ENCOUNTER 2019-10-26 08:40 | Emergency (ER) | payer OTHER ==
[2019-10-26 08:48] VITALS: BP 145/81
--- NOTE | 2019-10-26 09:23 | UC ---
Abdominal Pain Female HPI - HPI Summary HPI Summary: 69-year-old woman comes in with a chief complaint of upper abdominal pain. She' s had this on and off since July 2019. Pain is worse with eating. Pain is in the epigastrium and the right upper quadrant sometimes radiates to the back. No fevers measured. She has decreased appetite. She does have GERD. She is on omeprazole 20 mg once a day. She is being treated for UTI at this time. Last time she had severe upper abdominal pain was 2 days ago. She still has her gallbladder. No changes in bowels. 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 Bilateral knee replacements 07/2018. tubal ligation 04/2000. wisdom teeth. small cyst removed from rt wrist early - Family History Known Family History: Negative: Hypertension, Diabetes - Social History Alcohol Use: None Substance Use Type: None Smoking Status (MU): Never Smoked Tobacco Have You Smoked in the Last Year: No Review of Systems All Other Systems Reviewed And Are Negative: Yes Constitutional: Positive: Negative Skin: Positive: Negative Eyes: Positive: Negative ENT: Positive: Negative Respiratory: Positive: Negative Cardiovascular: Positive: Negative Gastrointestinal: Positive: Abdominal Pain Genitourinary: Positive: Other - SEE HPI Motor: Positive: Negative Neurovascular: Positive: Negative Musculoskeletal: Positive: Negative Neurological: Positive: Negative Psychological: Positive: Negative Is Patient Immunocompromised?: No Physical Exam Triage Information Reviewed: Yes Appearance: Well-Appearing, No Pain Distress, Well-Nourished Vital Signs: Initial Vital Signs Temp 96.8 F 10/26/19 08:44 Pulse 110 10/26/19 08:44 Resp 20 10/26/19 08:44 BP 145/81 10/26/19 08:44 Pulse Ox 100 10/26/19 08:44 Vital Signs Reviewed: Yes Eye Exam: Normal Eyes: Positive: Conjunctiva Clear Neck: Positive: Supple Respiratory: Positive: Lungs clear, Normal breath sounds, No respiratory distress Cardiovascular: Positive: RRR Abdomen Description: Positive: Other: - Mild tenderness to palpation right upper quadrant and epigastrium. No lower abdominal tenderness to palpation. Musculoskeletal: Positive: Strength Intact, ROM Intact Neurological: Positive: Alert, Muscle Tone Normal Psychological: Positive: Age Appropriate Behavior Skin Exam: Normal Abd Pain Female Course/Dx - Course Course Of Treatment: Subsurface Augmentee Elint Operator: Virgil Madison F ([id number]) Regional Agronomist: CARMINE ( NUANCE) Report Date: 10/26/2019 10:04:00 Report Status: Final ====== Start of Report Content Patient Name: ALKA SHEA Medical Record#: [id number] Ordering Physician: Robert SZYMANSKI Acct.#: [id number] : Age: 69 Sex: F Location: [facility] Exam Date: 10/26/19 0850 ADM Status: [facility] ER Order Information: GALL BLADDER Accession Number: [id number] CPT: 47614 INDICATION: Right upper quadrant pain. COMPARISON: Comparison is made with a prior CT of the abdomen and pelvis from December 24, 2017. TECHNIQUE: Multiple real-time images of the right upper quadrant were obtained. FINDINGS: No gallstones, gallbladder wall thickening or pericholecystic fluid was present. The patient was tender directly over the gallbladder. No intra or extrahepatic ductal distention is present. The common bile duct measured 0.3 cm in diameter. The liver is normal in size without significant focal abnormality. The pancreas is partially obscured by overlying bowel gas. The visualized portion appears to be within normal limits. No ductal distention is seen. The right kidney is normal in size without evidence for hydronephrosis. IMPRESSION: THE GALLBLADDER APPEARS WITHIN NORMAL LIMITS. NO GALLSTONES OR GALLBLADDER WALL THICKENING WAS PRESENT. THE PATIENT WAS TENDER DIRECTLY OVER THE GALLBLADDER DURING SCANNING. <Electronically signed by Virgil Madison MD in OV> 10/26/19 1001 Dictated By: Virgil Madison MD Dictated Date/Time: 10/26/19954 Transcribed Date/Time: 10/26/19954 Copy to: CC:Crow Carpenter MD; Robert SZYMANSKI; Aditya Dubon MD Imaging - [facility] Imaging - [facility] Urgent [facility] [address] [address] ph ) ph [phone]) ph ([phone]) End of Report Content I discussed the ultrasound results with the patient. Plan right now is to increase the omeprazole from 20 mg once a day to twice a day and follow-up with gastroenterology. CRP, CBC, CMP and lipase are all pending. Get reevaluated sooner if any questions or concerns. Patient is to go the emergency department if her condition worsens. - Differential Dx/Diagnosis Provider Diagnosis: Upper abdominal pain Discharge ED - Sign-Out/Discharge Documenting (check all that apply): Patient Departure All imaging exams completed and their final reports reviewed: Yes - Discharge Plan Condition: Stable Disposition: HOME Patient Education Materials: Acute Abdominal Pain (ED) Referrals: Crow Carpenter MD [Primary Care Provider] - Claudio Payne DO [Doctor of Osteopathy] - Additional Instructions: FOLLOW UP WITH GASTROENTEROLOGY OR YOUR PRIMARY CARE DOCTOR. GET REEVALUATED SOONER IF NOT IMPROVED OR WORSE OR ANY QUESTIONS OR CONCERNS. IF WORSE; PAIN, FEVER, VOMITING, YOU FEEL ILL, BLOOD IN YOUR STOOL OR VOMIT, GO TO THE EMERGENCY DEPARTMENT. - Billing Disposition and Condition Condition: STABLE Disposition: Home
[2019-10-26 16:25] LABS: ABS Eosinophils 0.2 10^3/ul (0-0.6); ABS Lymphocytes 1.3 10^3/ul (1.0-4.8); ABS Monocytes 0.4 10^3/ul (0-0.8); ABS Neutrophils 3.8 10^3/ul (1.5-7.7); Eosinophil % 4.3 %; Hematocrit 43 % (35-47); Hemoglobin 14.6 g/dL (12.0-16.0); Lymphocyte % 22.5 %; Mean Corpuscular HGB Conc 34 g/dL (31-36); Mean Corpuscular Hemoglobin 30 pg (27-31); Mean Corpuscular Volume 87 fL (80-97); Mean Platelet Volume 8.8 fL (7.4-10.4); Nucleated Red Blood Cells % 0.1; Platelet Count 269 10^3/uL (150-450); Red Blood Count 4.87 10^6 /uL (3.70-4.87); Red Cell Distribution Width 14 % (10-15); White Blood Count 5.7 10^3/uL (3.5-10.8)
[2019-10-28 17:42] LABS: Albumin 4.4 g/dL (3.2-5.2); Anion Gap 9 mmol/L (2-11); CO2 Carbon Dioxide 29 mmol/L (22-32); Calcium 9.9 mg/dL (8.6-10.3); Chloride 101 mmol/L (101-111); Potassium 4.1 mmol/L (3.5-5.0); Sodium 139 mmol/L (135-145)
[2019-10-28 17:48] LABS: ALT 9 U/L (7-52); AST 15 U/L (13-39); Alkaline Phosphatase 81 U/L (34-104); BUN/Creatinine Ratio 13.8 (8-20); Blood Urea Nitrogen 13 mg/dL (6-24); C Reactive Protein 1.35 mg/L (<8.01); EGFR African American 71.7 (>60); EGFR Non-African American 59.2 (>60); Globulin 2.2 g/dL (2-4); Glucose 99 mg/dL (70-100); Total Protein 6.6 g/dL (6.4-8.9)
--- NOTE | 2019-10-29 15:03 | UC ---
- Progress Note Progress Note: [ PROGRESS NOTE: Labs run 10/29/19. Within normal limits except slightly low lipase=10. No change in treatment. Tima Rose MD Course/Dx - Diagnoses Provider Diagnoses: Upper abdominal pain Discharge ED - Sign-Out/Discharge Documenting (check all that apply): Post-Discharge Follow Up All imaging exams completed and their final reports reviewed: Yes - Discharge Plan Condition: Stable Disposition: HOME Patient Education Materials: Acute Abdominal Pain (ED) Referrals: Claudio Payne DO [Doctor of Osteopathy] - Crow Carpenter MD [Primary Care Provider] - Additional Instructions: FOLLOW UP WITH GASTROENTEROLOGY OR YOUR PRIMARY CARE DOCTOR. GET REEVALUATED SOONER IF NOT IMPROVED OR WORSE OR ANY QUESTIONS OR CONCERNS. IF WORSE; PAIN, FEVER, VOMITING, YOU FEEL ILL, BLOOD IN YOUR STOOL OR VOMIT, GO TO THE EMERGENCY DEPARTMENT. - Billing Disposition and Condition Condition: STABLE Disposition: Home
== END 2019-10-26 10:40 | disposition home or self-care (01) ==
LOC: UCEAST 08:40
DX: R10.11 Right upper quadrant pain (principal); I10 Essential (primary) hypertension; R10.13 Epigastric pain; K21.9 Gastro-esophageal reflux disease without esophagitis; Z91.012 Allergy to eggs; Z88.1 Allergy status to other antibiotic agents; Z79.899 Other long term (current) drug therapy
CPT/HCPCS: 36415; 76705; 80053; 83690; 85025; 86140; 99211; G0463